=== PATIENT | female | born 1945 | race Caucasian/White ===

== ENCOUNTER 2025-02-08 09:57 | Outpatient (REF) | payer MEDICARE, BC, SELFPAY ==
[2025-02-08 16:40] LABS: Urine Cytology See Pathology rpt
== END 2025-02-08 09:58 | disposition home or self-care (01) ==
LOC: HO.LAB 09:57
PROVIDERS: Visit Provider Urology
DX: N39.0 Urinary tract infection, site not specified (principal)
CPT/HCPCS: 81003; 87086; 88112; 88305

== ENCOUNTER 2025-02-08 09:57 | Outpatient (AMB) | payer MEDICARE, BC, SELFPAY ==
--- NOTE | 2025-02-08 11:50 | A.OFFVIS_ITS ---
Intake Visit Reasons: urinary frequency Intake Note: New patient presents today for initial visit for urinary frequency Urology Medication: Blood Thinner: Antibiotic Allergies: PVR: Allergies Penicillins Allergy (Mild, Verified 02/08/25 11:51) Hives Medication List - Last Reconciled 02/08/25 by Awais Dobbins MD atorvastatin 20 mg PO DAILY brimonidine-timolol 0.2-0.5 % (Combigan) 1 drp ophthalmic (eye) BID doxycycline hyclate 100 mg PO BID meloxicam 15 mg PO DAILY methylphenidate HCl 10 mg PO DAILY mirabegron ER (Myrbetriq) 50 mg PO DAILY mupirocin 2% 1 appl topical BID peg-electrolyte soln 420 gram 240 mL PO Q10M vitamins A,C,T-pyjz-eysfjt 2,148 mcg-113 mg-45 mg-17.4mg (PreserVision AREDS) 1.5 tabs PO ONCE HPI Comments Details: History of Present Illness The patient is a 79-year-old female presenting with urinary incontinence. The onset was sudden and occurred in mid to late October. She experiences urinary leakage, which prompted advice from a family member to use pads. Primary care evaluation included a urinalysis showing mixed bacteria (less than 10,000 colonies) and a renal and bladder ultrasound that was unremarkable. Despite symptoms, the urine analysis today does not suggest a clear UTI, but there is a consideration of overactive bladder as a potential cause. The patient's lifestyle includes one cup of tea daily, limited diet soda, and occasional wine, with none suspected as bladder irritants. She indicates a history of consuming the same yogurt product daily without issue. There is men tion of burning with concentrated urine, amplifying her symptoms. Previous evaluations include a Pap smear almost five years ago without recent updates. Urinary Symptoms Review - Urinary incontinence began mid to late October - Episodes of leakage reported - History of burning exacerbated by concentrated urine - Nocturnal symptoms not discussed - Reduced soda intake to diet soda, twice per week - Consumption of one cup of tea per day - Alcohol intake: One glass of wine every other day - Daily intake of [facility] yogurt Results - Labs: - Urine Culture: Less than 10,000 colonies of mixed bacteria - Tests and Diagnostics: - Renal and Bladder Ultrasound: Unremarkable findings, kidneys within normal limits Discussion Notes I discussed with the patient that her urinary incontinence could be due to an overactive bladder, which often occurs with age and can lead to bladder spasms and leakage. The current urine analysis does not strongly indicate a urinary tract infection. We agreed to repeat the urine culture to assess any changes or developments. I explained the process and purpose of cystoscopy, informing her it would be performed in-office with antibiotic prophylaxis and local ane sthetic, to better visualize the inside of the bladder and identify potential issues. We discussed the possibility of starting a bladder spasm medication trial and its benefits and potential side effects, and I noted the pharmacy for prescription. The follow-up plan, including pelvic examination during cystoscopy, was established, and scheduling was advised at the visit's conclusion. Plan I will repeat the urine culture to confirm or rule out infection. For suspected overactive bladder, I prescribed Mirabegron 50 mg daily to decrease bladder spasms. Cystoscopy is planned in-office to examine bladder interior with antibiotic prophylaxis and local anesthesia, along with a pelvic exam. The patient will follow up in 8 to 10 weeks for reassessment, with consent obtained for procedures and understanding discussed. Patient Instructions - Await updated urine culture results before any change in treatment - Start Mirabegron 50 mg daily as prescribed and monitor for improvement - Observe for any side effects of the new medication and report promptly - Avoid irritants like excessive caffeine and stay hydrated to avoid concentrated urine - Follow-up scheduled in 8 to 10 weeks for cystoscopy and pelvic exam - Contact the nurse if issues arise with prescribed medication coverage Patient was informed and verbally consented to the use of an ambient scribe for clinic note documentation during this visit. 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, bilateral Review of Systems Const All systems reviewed & are unremarkable except as noted in HPI and below Reports no additional complaints Eyes Reports no additional complaints ENT Reports no additional complaints Card Reports no additional complaints Resp Reports no additional complaints GI Reports no additional complaints Reports as per HPI Musc Reports no additional complaints Skin/Breast Reports system reviewed and no additional complaints, except as documented Neuro Reports no additional complaints Psych Reports no additional complaints Endo Reports no additional complaints Max/Lymph Reports no additional complaints Aller/Immun Reports no additional complaints Results AMB Urinalysis, Automated UA Leukoctes 0 Rafita/uL Last Edit by Kathi Vo on 02/08/25 14:15 UA Nitrite Negative Last Edit by Kathi Vo on 02/08/25 14:15 UA Urobilinogen 0.2 mg/dL Last Edit by Kathi Vo on 02/08/25 14:15 UA Protein 15 mg/dL Last Edit by Kathi Vo on 02/08/25 14:15 UA pH 6.0 Last Edit by Kathi Vo on 02/08/25 14:15 UA Blood 0 Nomi/uL Last Edit by Kathi Vo on 02/08/25 14:15 UA Specific [place] 1.025 Last Edit by Kathi Vo on 02/08/25 14:15 UA Ketone Negative Last Edit by Kathi Vo on 02/08/25 14:15 UA Bilirubin 0 mg/dL Last Edit by Kathi Vo on 02/08/25 14:15 UA Glucose 0 mg/dL Last Edit by Kathi Vo on 02/08/25 14:15 Assessment & Plan Assessment & Plan Orders: Orders AMB Urinalysis Automated Today Z13.9 - Encounter for screening, unspecified Medications: New mirabegron ER (Myrbetriq) 50 mg PO DAILY 30 tabs 2RF Coding
== END 2025-02-08 12:25 | disposition home or self-care (01) ==
LOC: HO.HUSH 09:57
PROVIDERS: Visit Provider Urology
DX: Z13.9 Encounter for screening, unspecified (principal)

== ENCOUNTER 2025-04-04 10:34 | Outpatient (AMB) | payer MEDICARE, BC, SELFPAY ==
--- NOTE | 2025-04-04 10:54 | MHC.OFFVIS ---
Intake Visit Reasons: cysto Intake Note: Patient presents today for cystoscopy Lot:[id number] Exp:11-04-27 Urology Medication:Mirabegron Blood Thinner:None Antibiotic Allergies:None Allergies Penicillins Allergy (Mild, Verified 05/29/25 10:55) Hives Medication List - Last Reconciled 04/04/25 by Awais Dobbins MD atorvastatin 20 mg PO DAILY brimonidine-timolol 0.2-0.5 % (Combigan) 1 drp ophthalmic (eye) BID doxycycline hyclate 100 mg PO BID meloxicam 15 mg PO DAILY methylphenidate HCl 10 mg PO DAILY mirabegron ER (Myrbetriq) 50 mg PO DAILY mupirocin 2% 1 appl topical BID peg-electrolyte soln 420 gram 240 mL PO Q10M vitamins A,C,K-vakv-zgklwa 2,148 mcg-113 mg-45 mg-17.4mg (PreserVision AREDS) 1.5 tabs PO ONCE HPI Comments Details: 04/04/25-- Here for office cystoscopy. History of Present Illness The patient is a 79-year-old female presenting with urinary incontinence and increased frequency, having been ongoing for some time. She notes an increase in nocturnal leakage potentially related to deeper sleep, impacting her responsiveness to urinary urges. During the day, the patient experiences constant low-volume leaks, with possible exacerbation linked to nervousness. Despite attempts to manage the symptoms by adjusting fluid intake, the problem persists. Dietary habits remain unchanged, and the condition has become a source of stress. Urinary Symptoms Review - Nocturnal urinary leakage with increased frequency - Daytime consistent low-volume urinary leakage - Possible correlation of nervousness with increased symptoms - Inconsistent pattern in urinary urgency and leakage - Short-term dietary management of fluid intake Results - Cystoscopy reveals mild to moderate bladder wall thickening Plan I recommend initiating Gemtesa to address the urinary incontinence related to bladder spasms, with an additional consideration for Botox therapy if needed in the future. For the vaginal atrophy contributing to urinary symptoms, low-dose estrogen cream will be applied topically to improve tissue health. 02/08/25--History of Present Illness The patient is a 79-year-old female presenting with urinary incontinence. The onset was sudden and occurred in mid to late October. She experiences urinary leakage, which prompted advice from a family member to use pads. Primary care evaluation included a urinalysis showing mixed bacteria (less than 10,000 colonies) and a renal and bladder ultrasound that was unremarkable. Despite symptoms, the urine analysis today does not suggest a clear UTI, but there is a consideration of overactive bladder as a potential cause. The patient's lifestyle includes one cup of tea daily, limited diet soda, and occasional wine. There is mention of burning with concentrated urine, amplifying her symptoms. Previous evaluations include a Pap smear almost five years ago without recent updates. Urinary Symptoms Review - Urinary incontinence began mid to late October - Episodes of leakage reported - History of burning exacerbated by concentrated urine - Nocturnal symptoms not discussed - Reduced soda intake to diet soda, twice per week - Consumption of one cup of tea per day - Alcohol intake: One glass of wine every other day Results - Labs: - Urine Culture: Less than 10,000 colonies of mixed bacteria - Tests and Diagnostics: - Renal and Bladder Ultrasound: Unremarkable findings, kidneys within normal limits Discussion Notes I discussed with the patient that her urinary incontinence could be due to an overactive bladder, which often occurs with age and can lead to bladder spasms and leakage. The current urine analysis does not strongly indicate a urinary tract infection. We agreed to repeat the urine culture to assess any changes or developments. The follow-up plan, including pelvic examination during cystoscopy, was established, and scheduling was advised at the visit's conclusion. 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, bilateral Review of Systems Const All systems reviewed & are unremarkable except as noted in HPI and below Reports no additional complaints Eyes Reports no additional complaints ENT Reports no additional complaints Card Reports no additional complaints Resp Reports no additional complaints GI Reports no additional complaints Reports as per HPI Musc Reports no additional complaints Skin/Breast Reports system reviewed and no additional complaints, except as documented Neuro Reports no additional complaints Psych Reports no additional complaints Endo Reports no additional complaints Max/Lymph Reports no additional complaints Aller/Immun Reports no additional complaints Office Procedures Cystoscopy Consent Discussed risk and benefit or proposed procedure with the patient. Information consent for procedure given to the patient. Discussed technical aspects, risks, benefits and alternatives in full. Addressed all of the patient's questions and concerns regarding the procedure. The patient demonstrated knowledge and understanding. They wish to proceed with this procedure. Preparation The patient was prepped in the usual manner. A liquified natural gas specialist was present and in the room. Genitalia was prepped with betadine solution in a sterile manner. Lidocaine Jelly 2% was placed into the urethra and 16Fr flexible Olympus cystoscope was inserted into the meatus after adequate lubrication. Procedure Time out per protocol performed. Speculum used as indicated for adequate visualization of urethra, the flexible cystoscope is passed transurethrally: The bladder was inspected in its entirety with utilization retroflexion displaying: Tumor(s): no suspicious bladder lesions visualized Trabeculation: Mild Mucosal Erthema: NA Orifices: normal shape and position Urethra: normal Cystoscopy findings: WNL, no suspicious bladder lesions visualized [id number] DISPOSABLE SCOPE URO-G FLEXIBLE SCOPE Procedure code (CPT) selection complete Office Meds lidocaine HCl 2 % mucosal jelly in applicator Performing Provider: Awais Dobbins MD [facility] Administered by: Jacque Littlejohn RN on 04/04/25 11:15 Dose Route Admin Location Dispensed Lot Number Expiration Date NDC Hydraulic [employer] Mechanic 10 mL intra-urethral 20 mL ciprofloxacin HCl 500 mg tablet Performing Provider: Awais Dobbins MD Performing [facility] Administered by: Jacque Littlejohn RN on 04/04/25 11:15 Dose Route Admin Location Dispensed Lot Number Expiration Date NDC Hydraulic Rub[employer] Mechanic 500 mg PO 1 tab phenazopyridine 200 mg tablet Performing Provider: Awais Dobbins MD Performing [facility] Administered by: Jacque Littlejohn RN on 04/04/25 11:15 Dose Route Admin Location Dispensed Lot Number Expiration Date NDC Hydraulic [employer] Mechanic 200 mg PO 1 tab Results AMB Urinalysis, Automated UA Leukoctes 0 Rafita/uL Last Edit by SMA Mady on 04/04/25 16:42 UA Nitrite Last Edit by SMA Mady on 04/04/25 16:42 UA Urobilinogen 17 mg/dL Last Edit by SMA Mady on 04/04/25 16:42 UA Protein 15 mg/dL Last Edit by Vernon Rubio, [facility] on 04/04/25 16:42 UA pH 5.0 Last Edit by Vernon Rubio, [facility] on 04/04/25 16:42 UA Blood 10 Nomi/uL Last Edit by Vernon Rubio, [facility] on 04/04/25 16:42 UA Specific [place] 1.025 Last Edit by Vernon Rubio, [facility] on 04/04/25 16:42 UA Ketone Last Edit by Vernon Rubio, [facility] on 04/04/25 16:42 UA Bilirubin 0 mg/dL Last Edit by Vernon Rubio, [facility] on 04/04/25 16:42 UA Glucose 0 mg/dL Last Edit by Vernon Rubio, [facility] on 04/04/25 16:42 Results Reviewed Results Reviewed: Laboratory Last Values Urine pH (Auto) 5.0 04/04/25 16:29 Specific [place] (Auto) 1.025 04/04/25 16:29 Urine Protein (Auto) 15 mg/dL 04/04/25 16:29 Glucose (UA)(Auto) 0 mg/dL 04/04/25 16:29 Urine Blood (Auto) 10 Nomi/uL 04/04/25 16:29 Urine Bilirubin (Auto) 0 mg/dL 04/04/25 16:29 Urine Urobilinogen (Auto) 17 mg/dL 04/04/25 16:29 Leukocyte Esterase (Auto) 0 Rafita/uL 04/04/25 16:29 Assessment & Plan Assessment & Plan (1) OAB (overactive bladder): Code(s): N32.81 - Overactive bladder Category: Medical (2) Dysuria: Code(s): R30.0 - Dysuria Category: Medical (3) Urinary frequency: Code(s): R35.0 - Frequency of micturition Category: Medical (4) Microscopic hematuria: Code(s): R31.29 - Other microscopic hematuria Category: Medical (5) Vaginal atrophy: Code(s): N95.2 - Postmenopausal atrophic vaginitis Category: Medical Plan Plan I recommend initiating Gemtesa to address the urinary incontinence related to bladder spasms, with an additional consideration for Botox therapy if needed in the future. For the vaginal atrophy contributing to urinary symptoms, low-dose estrogen cream will be applied topically to improve tissue health. Orders: Orders AMB Cystoscopy 04/04/25 R35.0 - Frequency of micturition, R30.0 - Dysuria, N32.81 - Overactive bladder AMB Urinalysis Automated 04/04/25 N32.81 - Overactive bladder, R30.0 - Dysuria, R35.0 - Frequency of micturition Medications: New estradiol 0.01%(0.1mg/gram) (Estrace) Apply a pea-sized amount on fingertip vaginally at bedtime vaginally daily; 42.5 grams 1RF vibegron (Gemtesa) 75 mg PO DAILY 30 tabs 3RF Patient Instructions: The patient had an opportunity to ask questions regarding treatment plan. The patient expressed understanding and agreement with the above treatment plan. The patient is aware they should contact our office by phone for worsening of their current condition or the appearance of new symptoms. Compliance is encouraged with any medications and followup testing that is ordered. It is a privilege to be allowed the opportunity to participate in the urologic care of your patient. If you have any questions or concerns regarding treatment for the above conditions please do not hesitate to contact me. The office telephone contact is [phone]. This note is constructed in part using voice recognition software. While every effort has been made to ensure accuracy webfocus developer errors may have been included. Yours sincerely, Awais Dobbins MD Scribe Plan - Not visible on output: Patient was informed and verbally consented to the use of an ambient scribe for clinic note documentation during this visit. Coding Level of Care Code Est Pt Level 4 (98589) Diagnoses OAB (overactive bladder) N32.81 Dysuria R30.0 Urinary frequency R35.0 Microscopic hematuria R31.29 Vaginal atrophy N95.2 CPT Codes Cystoscopy - CPT: 98534-[id number] ([id number])
== END 2025-04-04 11:50 | disposition home or self-care (01) ==
LOC: HO.HUSH 10:34
PROVIDERS: Visit Provider Urology
DX: N32.81 Overactive bladder (principal); R30.0 Dysuria; R35.0 Frequency of micturition; R31.29 Other microscopic hematuria; N95.2 Postmenopausal atrophic vaginitis
CPT/HCPCS: 52000; 99214

== ENCOUNTER → 2025-04-04 10:34 | Outpatient (BNVA) | payer MEDICARE, BC, SELFPAY | PROVIDERS: Visit Provider Urology | DX: N32.81 Overactive bladder (principal); R30.0 Dysuria; R35.0 Frequency of micturition; R31.29 Other microscopic hematuria; N95.2 Postmenopausal atrophic vaginitis; Z79.2 Long term (current) use of antibiotics; Z79.899 Other long term (current) drug therapy | CPT/HCPCS: 52000; 81003; 99212 ==

== ENCOUNTER 2025-05-29 10:50 | Outpatient (AMB) | payer MEDICARE, BC, SELFPAY ==
--- NOTE | 2025-05-29 10:50 | MHC.OFFVIS ---
Intake Visit Reasons: 8w follow up Intake Note: Patient presents via telehealth today for 8w follow up Urology Medication:None Blood Thinner:None Antibiotic Allergies:None Allergies Penicillins Allergy (Mild, Verified 05/29/25 10:55) Althea QUINTERO Comments Details: 05/29/25-- History of Present Illness - The patient is a 80-year-old female presenting with urinary incontinence and bladder spasms. - She has a history of hypertension, with recent high blood pressure readings prompting a prescription of lisinopril 5 mg daily, which has improved her blood pressure control. - she discontinued bladder medication because she felt it contributed to increase in BP - The urinary incontinence has worsened over the past two weeks despite lifestyle changes, and previous medications were discontinued due to adverse effects. Plan - schedule UDS. Evaluate alternative treatments for urinary incontinence based on bladder test outcomes. 04/04/25-- Here for office cystoscopy. Urinary Symptoms Review - Nocturnal urinary leakage with increased frequency - Daytime consistent low-volume urinary leakage - Possible correlation of nervousness with increased symptoms - Inconsistent pattern in urinary urgency and leakage - Short-term dietary management of fluid intake Results - Cystoscopy reveals mild to moderate bladder wall thickening Plan I recommend initiating Gemtesa to address the urinary incontinence related to bladder spasms, with an additional consideration for Botox therapy if needed in the future. For the vaginal atrophy contributing to urinary symptoms, low-dose estrogen cream will be applied topically to improve tissue health. 02/08/25--History of Present Illness The patient is a 79-year-old female presenting with urinary incontinence. The onset was sudden and occurred in mid to late October. She experiences urinary leakage, which prompted advice from a family member to use pads. Primary care evaluation included a urinalysis showing mixed bacteria (less than 10,000 colonies) and a renal and bladder ultrasound that was unremarkable. Despite symptoms, the urine analysis today does not suggest a clear UTI, but there is a consideration of overactive bladder as a potential cause. The patient's lifestyle includes one cup of tea daily, limited diet soda, and occasional wine. There is mention of burning with concentrated urine, amplifying her symptoms. Previous evaluations include a Pap smear almost five years ago without recent updates. Urinary Symptoms Review - Urinary incontinence began mid to late October - Episodes of leakage reported - History of burning exacerbated by concentrated urine - Nocturnal symptoms not discussed - Reduced soda intake to diet soda, twice per week - Consumption of one cup of tea per day - Alcohol intake: One glass of wine every other day Results - Labs: - Urine Culture: Less than 10,000 colonies of mixed bacteria - Tests and Diagnostics: - Renal and Bladder Ultrasound: Unremarkable findings, kidneys within normal limits Discussion Notes I discussed with the patient that her urinary incontinence could be due to an overactive bladder, which often occurs with age and can lead to bladder spasms and leakage. The current urine analysis does not strongly indicate a urinary tract infection. We agreed to repeat the urine culture to assess any changes or developments. The follow-up plan, including pelvic examination during cystoscopy, was established, and scheduling was advised at the visit's conclusion. 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, bilateral Review of Systems Const All systems reviewed & are unremarkable except as noted in HPI and below Reports no additional complaints Eyes Reports no additional complaints ENT Reports no additional complaints Card Reports no additional complaints Resp Reports no additional complaints GI Reports no additional complaints Reports as per HPI Musc Reports no additional complaints Skin/Breast Reports system reviewed and no additional complaints, except as documented Neuro Reports no additional complaints Psych Reports no additional complaints Endo Reports no additional complaints Max/Lymph Reports no additional complaints Aller/Immun Reports no additional complaints Telehealth Telehealth Telehealth Platform: [facility] Location of provider rendering services: practice address Location of patient: address on file Patient Identification confirmed using: Name, : Yes Telehealth method: video Patient verbally consented to treatment: Yes Patient verbally consented to billing insurance company: Yes Patient informed of any privacy concerns related to visit: Yes Assessment & Plan Assessment & Plan (1) OAB (overactive bladder): Code(s): N32.81 - Overactive bladder Category: Medical (2) Dysuria: Code(s): R30.0 - Dysuria Category: Medical (3) Urinary frequency: Code(s): R35.0 - Frequency of micturition Category: Medical (4) Microscopic hematuria: Code(s): R31.29 - Other microscopic hematuria Category: Medical (5) Vaginal atrophy: Code(s): N95.2 - Postmenopausal atrophic vaginitis Category: Medical Plan Schedule Urodynamics Scribe Plan - Not visible on output: Patient was informed and verbally consented to the use of an ambient scribe for clinic note documentation during this visit. Coding Level of Care Code Tele Est Pt Level 3 (03028) Complex EM visit Add On G2211 Diagnoses OAB (overactive bladder) N32.81 Dysuria R30.0 Urinary frequency R35.0 Microscopic hematuria R31.29 Vaginal atrophy N95.2
== END 2025-05-29 11:49 | disposition home or self-care (01) ==
LOC: HO.HUSH 10:50
PROVIDERS: Visit Provider Urology
DX: N32.81 Overactive bladder (principal); R30.0 Dysuria; R35.0 Frequency of micturition; R31.29 Other microscopic hematuria; N95.2 Postmenopausal atrophic vaginitis
CPT/HCPCS: 99213; G2211

== ENCOUNTER 2025-08-23 09:57 | Outpatient (AMB) | payer MEDICARE, BC, SELFPAY ==
--- NOTE | 2025-08-23 10:51 | A.OFFVIS_ITS ---
Intake Visit Reasons: UDS Allergies Penicillins Allergy (Mild, Verified 05/29/25 10:55) Hives HPI Comments Details: 08/23/25--Melva is here for urodynamics she has had lower urinary tract symptoms urgency and urge incontinence. During the filling phase the patient had sensory urgency with decreased bladder capacity, subjectively felt that she was at max capacity at about 150 mL. Objective stress incontinence was not able to be evaluated during this testing. EMG activity WNL. 05/29/25-- History of Present Illness - The patient is a 80-year-old female presenting with urinary incontinence and bladder spasms. - She has a history of hypertension, with recent high blood pressure readings prompting a prescription of lisinopril 5 mg daily, which has improved her blood pressure control. - she discontinued bladder medication because she felt it contributed to increase in BP - The urinary incontinence has worsened over the past two weeks despite lifestyle changes, and previous medications were discontinued due to adverse effects. Plan - schedule UDS. Evaluate alternative treatments for urinary incontinence based on bladder test outcomes. 04/04/25-- Here for office cystoscopy. Urinary Symptoms Review - Nocturnal urinary leakage with increased frequency - Daytime consistent low-volume urinary leakage - Possible correlation of nervousness with increased symptoms - Inconsistent pattern in urinary urgency and leakage - Short-term dietary management of fluid intake Results - Cystoscopy reveals mild to moderate bladder wall thickening Plan I recommend initiating Gemtesa to address the urinary incontinence related to bladder spasms, with an additional consideration for Botox therapy if needed in the future. For the vaginal atrophy contributing to urinary symptoms, low-dose estrogen cream will be applied topically to improve tissue health. 02/08/25--History of Present Illness The patient is a 79-year-old female presenting with urinary incontinence. The onset was sudden and occurred in mid to late October. She experiences urinary leakage, which prompted advice from a family member to use pads. Primary care evaluation included a urinalysis showing mixed bacteria (less than 10,000 colonies) and a renal and bladder ultrasound that was unremarkable. Despite symptoms, the urine analysis today does not suggest a clear UTI, but there is a consideration of overactive bladder as a potential cause. The patient's lifestyle includes one cup of tea daily, limited diet soda, and occasional wine. There is mention of burning with concentrated urine, amplifying her symptoms. Previous evaluations include a Pap smear almost five years ago without recent updates. Urinary Symptoms Review - Urinary incontinence began mid to late October - Episodes of leakage reported - History of burning exacerbated by concentrated urine - Nocturnal symptoms not discussed - Reduced soda intake to diet soda, twice per week - Consumption of one cup of tea per day - Alcohol intake: One glass of wine every other day Results - Labs: - Urine Culture: Less than 10,000 colonies of mixed bacteria - Tests and Diagnostics: - Renal and Bladder Ultrasound: Unremarkable findings, kidneys within normal limits Discussion Notes I discussed with the patient that her urinary incontinence could be due to an overactive bladder, which often occurs with age and can lead to bladder spasms and leakage. The current urine analysis does not strongly indicate a urinary tract infection. We agreed to repeat the urine culture to assess any changes or developments. The follow-up plan, including pelvic examination during cystoscopy, was established, and scheduling was advised at the visit's conclusion. 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 Information consent for procedure given to the patient. Discussed technical aspects, risks, benefits and alternatives in full. Addressed all of the patient's questions and concerns regarding the procedure. The patient demonstrated knowledge and understanding. They wish to proceed with this procedure. Preparation The patient was prepped in the usual manner. A desktop analyst was present and in the room. Genitalia was prepped with betadine solution in a sterile manner. Procedure Complex Uroflow Complex uroflow performed by: Awais Dobbins Maximum urinary flow rate (mL/second): 18 Voiding time (seconds): 89 seconds Voided volume (mL): 125ml Residual urine (mL): 30ml Cystometrogram ? Vaginal/rectal catheter type: Vaginal First sensation at (mL): 28 mL First desire at (mL): 34 mL Strong desire to void occurred at (mL): 120 mL Strong desire detrusor pressure (cm H2O): 0.2 Maximum Capacity (mL): 156 mL Voiding Summary Voided with max detrusor pressure of (cm H2O): 111 Maximum flow rate (mL/second): 20 mL/s Voided volume (mL): ? 244ml Calculated PVR: 0 mL Stress Testing Unable to test due to patient with strong painful urge to void. DO Dry: 139ml (Very slight DO noted) Patient with urgency to void throughout the whole test without much DO. DO Wet:N/a Prep: The patient was prepped in the usual manner. A desktop analyst was present and in the room. Genitalia was prepped with betadine solution in a sterile manner. 59931-Qslkppmkfblfoe w/ [employer] 51145-Mawpmcd-Xcgwmskswdyx 66749-Ttce/Urinary Muscle Study 29492-Ylcsq-Ggtjlysst Pressure Test Procedure code (CPT) selection complete Office Meds nitrofurantoin monohydrate/macrocrystals 100 mg capsule Performing Provider: Awais Dobbins MD Performing Location: [facility] [place] [facility] Administered by: Jacque Littlejohn RN on 08/23/25 10:51 Dose Route Admin Location Dispensed Lot Number Expiration Date [facility] [employer] App[employer]ice 100 mg PO 1 cap Results AMB Urinalysis, Automated UA Leukoctes 0 Rafita/uL Last Edit by Jacque Littlejohn RN on 08/23/25 10:57 UA Nitrite Negative Last Edit by Jacque Littlejohn RN on 08/23/25 10:57 UA Urobilinogen 0.2 mg/dL Last Edit by Jacque Littlejohn RN on 08/23/25 10: 57 UA Protein 0 mg/dL Last Edit by Jacque Littlejohn RN on 08/23/25 10:57 UA pH 6.0 Last Edit by Jacque Littlejohn RN on 08/23/25 10:57 UA Blood 0 Nomi/uL Last Edit by Jacque Littlejohn RN on 08/23/25 10:57 UA Specific [place] 1.0 Last Edit by Jacque Littlejohn RN on 08/23/25 10:5 7 UA Ketone Negative Last Edit by Jacque Littlejohn RN on 08/23/25 10:57 UA Bilirubin 0 mg/dL Last Edit by Jacque Littlejohn RN on 08/23/25 10:57 UA Glucose 0 mg/dL Last Edit by Jacque Littlejohn RN on 08/23/25 10:57 Results Reviewed Results Reviewed: Laboratory Last Values Urine pH (Auto) 6.0 08/23/25 10:57 Specific [place] (Auto) 1.0 08/23/25 10:57 Urine Protein (Auto) 0 mg/dL 08/23/25 10:57 Glucose (UA)(Auto) 0 mg/dL 08/23/25 10:57 Urine Ketones (Auto) Negative 08/23/25 10:57 Urine Blood (Auto) 0 Nomi/uL 08/23/25 10:57 Urine Nitrite (Auto) Negative 08/23/25 10:57 Urine Bilirubin (Auto) 0 mg/dL 08/23/25 10:57 Urine Urobilinogen (Auto) 0.2 mg/dL 08/23/25 10:57 Leukocyte Esterase (Auto) 0 Rafita/uL 08/23/25 10:57 Assessment & Plan Assessment & Plan Orders: Orders AMB Urodynamics Studies Today N32.81 - Overactive bladder, R30.0 - Dysuria, R35.0 - Frequency of micturition AMB Urinalysis Automated Today Z13.9 - Encounter for screening, unspecified Coding CPT Codes Urodynamic Studies - CPT: 75134-Clpmrbwhovdbzn w/ [employer] PRES[employer] ([id number]) Urodynamic Studies - CPT: 06859-Jhndttr-Tnhxwwomxtdx ([id number]) Urodynamic Studies - CPT: 05429-Tnmi/Urinary Muscle Study ([id number]) Urodynamic Studies - CPT: 25728-Xhxem-Ydiuwbfgm Pressure Test ([id number])
--- OUTSIDE RECORDS SUMMARY | 2025-08-23 11:16 | XMS_ITS | Encounter Summary ---
Author Organization [facility] Address [address] [place] [id number] Care Team Providers Care Ammonia Refrigeration Technician Name Role Phone Unavailable Primary Care Provider Unavailabl e Encounter Details Date Type Department Care Team (Late st Contact Info) Description 06/15/2025 Lab Requisition [facility] Pathology & [facility] [address] [place] [address] Outr Resulting Lab, Provider Social History Tobacco Use Types Packs/Day Years Used Date Smoking Tobacco: Never Assessed Comments Unknown Sex and Gender Information Value Date Recorded Sex Assigned at Not on file Legal Sex Female 8:36 EDT Gender Identity Not on file Sexual Orientation Not on file documented as of this encounter Plan of Treatment Not on file documented as of this encounter Procedures Procedure Name Priority Date/Time Associated Diagnosis Comments LYME AB Routine 06/14/2025 8:43 EDT documented in this encounter Results * LYME AB (06/14/2025 8:43 EDT) Lyme Ab Negative Negative 06/17/2025 11:17 EDT [facility] Blood VENOUS BLOOD / Unknown 06/14/2025 8:43 EDT 06/16/2025 15:37 EDT us Provider Outr Resulting Lab IMMUNOLOGY AND SEROL OGY ORDERABLES Final Result [facility] [address] [place], [place] [id number] documented in this encounter Visit Diagnoses Not on filedocumented in this encounter
--- OUTSIDE RECORDS SUMMARY | 2025-08-23 11:16 | XMS_ITS | Clinical Summary ---
Author Organization [facility] Address [address] [place] [address] Care Team Providers Care Knotting Machine Operator Name Role Phone Unavailable Primary Care Provider Unavailabl e Encounters Date Type Department Care Team Description 06/15/2025 Lab Requisition [facility] Pathology & Laboratory Medicine - [facility] [address] [place] [address] Outr Resulting Lab, Provider from Last 3 Months Social History Tobacco Use Types Packs/Day Years Used Date Smoking Tobacco: Never Assessed Comments Unknown Sex and Gender Information Value Date Recorded Sex Assigned at Not on file Legal Sex Female 8:36 EDT Gender Identity Not on file Sexual Orientation Not on file Plan of Treatment Not on file Procedures Procedure Name Priority Date/Time Associated Diagnosis Comments LYME AB Routine 06/14/2025 8:43 EDT from Last 3 Months Results * LYME AB (06/14/2025 8:43 EDT) Lyme Ab Negative Negative 06/17/2025 11:17 EDT [facility] Blood VENOUS BLOOD / Unknown 06/14/2025 8:43 EDT 06/16/2025 15:37 EDT us Provider Outr Resulting Lab IMMUNOLOGY AND SEROL OGY ORDERABLES Final Result [facility] [address] [place] [address] from Last 3 Months
== END 2025-08-23 11:21 | disposition home or self-care (01) ==
LOC: HO.HUSH 09:57
PROVIDERS: Visit Provider Urology
DX: N32.81 Overactive bladder (principal); R30.0 Dysuria; R35.0 Frequency of micturition; Z13.9 Encounter for screening, unspecified
CPT/HCPCS: 51728; 51741; 51784; 51797

== ENCOUNTER → 2025-08-23 09:57 | Outpatient (BNVA) | payer MEDICARE, BC, SELFPAY | PROVIDERS: Visit Provider Urology | DX: N32.81 Overactive bladder (principal); R30.0 Dysuria; R35.0 Frequency of micturition; Z13.9 Encounter for screening, unspecified | CPT/HCPCS: 51728; 51741; 51784; 51797; 81003 ==